=== PATIENT | male | born 2000 | race Caucasian/White ===

== ENCOUNTER 2021-06-04 01:39 | Emergency (ER) | payer BC ==
[2021-06-04 02:08] VITALS: TEMP 98.4
[2021-06-04] MEDS ORDERED: LIDOCAINE 1% INJ 10MG/ML (20 ML MDV) SQ STA (02:19)
--- NOTE | 2021-06-04 02:23 | ED ---
Wound/Laceration HPI - General Chief Complaint: Wound/Laceration Stated Complaint: Left Hand Laceration Time Seen by Provider: 06/04/21 02:15 Source: patient, RN notes reviewed Mode of arrival: ambulatory - History of Present Illness Initial Comments: This is a pleasant, right-hand dominant 20-year-old male who presents to emergency department after sustaining a laceration to the palmar aspect of his left hand when he was attempting to open a package of chicken at home. She states she was cutting the package and sliced himself with a knife. He denies any significant pain. Tetanus status is up-to-date. He has no history of immunosuppression. No significant past medical history. No headache, no fever or chills, no changes in vision or hearing, no sore throat or difficulty with speech, no neck pain, no chest pain or shortness of breath, no abdominal pain, no nausea or vomiting, no changes in urination or bowel movements, no numbness or tingling, no extremity pain, no skin rashes or lesions. - Related Data Allergies Allergy/AdvReac Type Severity Reaction Status Date / Time Tetanus Vaccines and Toxoid AdvReac Swelling Verified 06/04/21 02:08 Review of Systems ROS Statement: Those systems with pertinent positive or pertinent negative responses have been documented in the HPI. ROS Other: All systems not noted in ROS Statement are negative. Past Medical History History of Any Multi-Drug Resistant Organisms: None Reported Past Surgical History: Orthopedic Surgery Past Psychological History: No Psychological Hx Reported Smoking Status: Vaper Past Alcohol Use History: None Reported Past Drug Use History: None Reported General Exam - General Exam Comments Initial Comments: Patient does not appear to be ill or toxic. General appearance: alert, in no apparent distress Head exam: Present: atraumatic, normocephalic, normal inspection Eye exam: Present: normal appearance, EOMI Neck exam: Present: normal inspection Respiratory exam: Present: normal lung sounds bilaterally. Absent: respiratory distress, wheezes, rales, rhonchi, stridor Cardiovascular Exam: Present: regular rate, normal rhythm, normal heart sounds. Absent: systolic murmur, diastolic murmur, rubs, gallop, clicks Extremities exam: Present: full ROM, normal capillary refill. Absent: tenderness Left Forearm Wrist exam: Present: normal inspection, full ROM. Absent: tenderness Hand Wrist exam: Present: full ROM, laceration. Absent: tenderness, swelling, abrasion, ecchymosis, deformity, crepitus, dislocation, erythema, amputation, nail avulsion, subungual hematoma Neuro motor exam: Present: wrist extension intact, thumb opposition intact, thumb IP flexion intact, thumb adduction intact, fingers 2-5 abduction intact Neurosensory exam: Present: 2-point discrimination, radial nerve intact, ulnar nerve intact, median nerve intact Vascular: Present: normal capillary refill, radial pulse (Normal pulses). Absent: vascular compromise, Pallo, pulse deficit radial art, pulse deficit ulnar art Neurological exam: Present: alert, oriented X3, CN II-XII intact Psychiatric exam: Present: normal affect, normal mood Skin exam: Present: warm, dry, normal color, other (Patient has a 3 cm laceration to the palmar aspect of his right hand. No evidence of contamination.). Absent: intact, cyanosis, diaphoretic, erythema Course Vital Signs 06/04/21 02:03 Temperature 98.4 F Pulse Rate 125 H Respiratory 20 Rate Blood Pressure 154/90 O2 Sat by Pulse 99 Oximetry Procedures - Laceration Laceration #1 Consent Obtained: verbal consent Indication: laceration Site: hand Size (cm): 3 Description: linear, clean Depth: simple, single layer Anesthetic Used: lidocaine 1% Anesthesia Technique: local infiltration Amount (mls): 3 Pre-repair: wound explored, irrigated extensively, deep structures intact Type of Sutures: nylon Size of Sutures: 4-0 Number of Sutures: 5 Technique: simple, interrupted Patient Tolerated Procedure: well, no complications Medical Decision Making - Medical Decision Making Patient counseled on wound care. Counseled on signs and symptoms of infection. Return parameters discussed. There was no need for imaging as this wound was very superficial and could be explored to the base. Only extended into the subcutaneous tissue. Patient was told to return to the ER for any signs or symptoms worsen. Told to return immediately if any other problems arise. All questions answered. Treatment plan discussed. Patient in agreement Disposition Clinical Impression: Laceration of left hand Disposition: HOME SELF-CARE Condition: Good Instructions (If sedation given, give patient instructions): Care For Your Stitches (ED), Laceration (ED) Additional Instructions: Suture removal in 10 days--return here for suture removal.. Wash the wound daily with warm soap and water. Keep the wound clean and covered. Use a thin layer of antibiotic ointment such as Neosporin or triple oncotic ointment. Patient was told to return to the ER for any signs or symptoms worsen. Told to return immediately if any other problems arise. All questions answered. Treatment plan discussed. Patient in agreement Is patient prescribed a controlled substance at d/c from ED?: No Referrals: Jose Carlos Noguera DO [STAFF PHYSICIAN] - 06/08/21 (Follow-up as needed) Time of Disposition: 02:58
[2021-06-04 03:35] VITALS: BP 136/74; PULSE 97; RESP 15
== END 2021-06-04 03:29 | disposition home or self-care (01) ==
LOC: EC 01:39
DX: S61.411A Laceration without foreign body of right hand, initial encounter (principal); F17.290 Nicotine dependence, other tobacco product, uncomplicated; Z88.7 Allergy status to serum and vaccine; W26.8XXA Contact with other sharp object(s), not elsewhere classified, initial encounter
CPT/HCPCS: 12002; 99282